=== PATIENT | male | born 1965 | race Two or more races ===

== ENCOUNTER 2016-03-18 17:52 | Emergency (ER) | payer OTHER ==
[~2016-03-18] VITALS: Ht 170.2 cm; Wt 88.0 kg
[~2016-03-18 17:52] MED LIST: NOR10T PO
[2016-03-18 18:55] LABS: Basophils # (auto) 0 uL; Basophils % (auto) 0.3 % (0.0-2.0); Eosinophils # (auto) 0.1 uL; Eosinophils % (auto) 1.7 % (0.0-7.0); Hematocrit 47.6 % (41.0-53.0); Hemoglobin 15.8 g/dL (13.5-17.5); Lymphocytes # (auto) 1.8 uL; Lymphocytes % (auto) 26.7 % (10.0-50.0); Mean Corpuscular Hemoglobin 29.5 pg (28.0-32.0); Mean Corpuscular Hgb Conc. 33.2 g/dL (32.0-36.0); Mean Corpuscular Volume 88.9 fL (80.0-100.0); Mean Platelet Volume 7.2 fL (7.4-10.4); Monocytes # (auto) 0.4 uL; Monocytes % (auto) 5.2 % (0.0-12.0); Neutrophils # (auto) 4.5 uL; Neutrophils % (auto) 66.1 % (37.0-80.0); Platelet Count (auto) 380 10^3/uL (140-450); Red Cell Distribution Width 13.2 % (11.6-16.0); White Blood Cell 6.8 10^3/uL (4.4-10.8)
[2016-03-18 19:13] LABS: Albumin 4.6 g/dL (3.4-5.0); BUN/Creatinine Ratio 11.9; Bilirubin, Total 0.3 mg/dL (0.2-1.0); Potassium 3.9 mmol/L (3.5-5.1); Total Protein 7.9 g/dL (6.4-8.2)
[2016-03-19 04:00] VITALS: BP 108/77
[2016-03-19] MEDS ORDERED: SODIUM CHLORIDE 0.9% 1,000 ML IV ONE (04:15)
[2016-03-19] MEDS ORDERED: ONDANSETRON HCL 4 MG/2 ML VIAL IV ONE (04:15)
== END 2016-03-19 05:32 | disposition home or self-care (01) ==
LOC: ER 18:05
DX: R07.89 Other chest pain (principal); K29.70 Gastritis, unspecified, without bleeding; F41.9 Anxiety disorder, unspecified; I10 Essential (primary) hypertension; R42 Dizziness and giddiness
CPT/HCPCS: 36415; 74176; 80053; 83690; 84484; 85025; 85049; 93005; 96361; 96374; 99285; J2405; J7030

== ENCOUNTER 2016-10-26 08:45 | Emergency (ER) | payer OTHER ==
[~2016-10-26] VITALS: Ht 170.2 cm; Wt 85.7 kg
[2016-10-26 09:31] LABS: Basophils # (auto) 0 uL; Basophils % (auto) 0.2 % (0.0-2.0); CONDITION Y; Eosinophils # (auto) 0.1 uL; Hematocrit 47.5 % (41.0-53.0); Hemoglobin 16.5 g/dL (13.5-17.5); Lymphocytes # (auto) 1.5 uL; Lymphocytes % (auto) 25.8 % (10.0-50.0); Mean Corpuscular Hemoglobin 30.9 pg (28.0-32.0); Mean Corpuscular Hgb Conc. 34.8 g/dL (32.0-36.0); Mean Corpuscular Volume 88.8 fL (80.0-100.0); Mean Platelet Volume 6.9 fL (7.4-10.4); Monocytes # (auto) 0.3 uL; Monocytes % (auto) 5.6 % (0.0-12.0); Neutrophils # (auto) 3.8 uL; Neutrophils % (auto) 66.4 % (37.0-80.0); Platelet Count (auto) 330 10^3/uL (140-450); Red Cell Distribution Width 13.5 % (11.6-16.0); White Blood Cell 5.7 10^3/uL (4.4-10.8)
[2016-10-26 10:09] LABS: Albumin 4.1 g/dL (3.4-5.0); Alkaline Phosphatase 108 U/L (45-117); Anion Gap 8 (5-15); Aspartate Aminotransferase 16 U/L (15-37); BUN/Creatinine Ratio 9.8; Bilirubin, Total 0.4 mg/dL (0.2-1.0); Blood Urea Nitrogen 8 mg/dL (7-18); Calcium 8.9 mg/dL (8.5-10.1); Carbon Dioxide 26 mmol/L (21-32); Chloride 106 mmol/L (98-107); GFR African American 126 mL/min; GFR Non-African American 104 mL/min; Glucose 105 mg/dL (74-106); Magnesium 2.4 mg/dL (1.6-2.6); Potassium 3.9 mmol/L (3.5-5.1); Sodium 140 mmol/L (136-145); Total Protein 7.9 g/dL (6.4-8.2)
[2016-10-26] MEDS ORDERED: SODIUM CHLORIDE 0.9% 1,000 ML IV ONE (10:15)
[2016-10-26 10:28] LABS: B-Type Natriuretic Peptide 12.07 pg/mL (0-100)
[2016-10-26] MEDS ORDERED: ASPirin 81 mg TAB PO ONE (10:30)
[2016-10-26] MEDS ORDERED: NITROGLYCERIN 0.4 MG SL TAB SL ONE (10:30)
[2016-10-26] MEDS ORDERED: LORazepam 2MG/ML-1ML VIAL IV ONE (10:30)
[2016-10-26 10:32] LABS: Temperature: 23.5 C (20.0-25.0)
[2016-10-26 13:44] VITALS: BP 122/77
== END 2016-10-26 13:48 | disposition short-term general hospital (02) ==
LOC: ER 08:45
DX: R07.89 Other chest pain (principal); F41.9 Anxiety disorder, unspecified; R11.2 Nausea with vomiting, unspecified; R61 Generalized hyperhidrosis; G89.29 Other chronic pain; M54.9 Dorsalgia, unspecified; E78.5 Hyperlipidemia, unspecified
CPT/HCPCS: 36415; 71010; 80053; 83735; 83880; 84443; 84484; 85025; 93005; 96374; 99285; J2060; J7030

== ENCOUNTER 2017-05-08 14:01 | Observation (INO) | payer OTHER, MEDICAID ==
[~2017-05-08] VITALS: Ht 177.8 cm; Wt 86.2 kg
[2017-05-08 14:45] LABS: Basophils # (auto) 0 uL; Basophils % (auto) 0.4 % (0.0-2.0); Eosinophils # (auto) 0.1 uL; Hematocrit 44.7 % (41.0-53.0); Hemoglobin 15.2 g/dL (13.5-17.5); Lymphocytes # (auto) 1.3 uL; Lymphocytes % (auto) 21.8 % (10.0-50.0); Mean Corpuscular Hemoglobin 30.3 pg (28.0-32.0); Mean Corpuscular Hgb Conc. 34.1 g/dL (32.0-36.0); Monocytes # (auto) 0.4 uL; Monocytes % (auto) 6.6 % (0.0-12.0); Neutrophils % (auto) 70.2 % (37.0-80.0); Platelet Count (auto) 306 10^3/uL (140-450); Red Blood Cells 5.03 10^6/uL (4.5-5.90); White Blood Cell 5.7 10^3/uL (4.4-10.8)
[2017-05-08] MEDS ORDERED: ONDANSETRON HCL 4 MG/2 ML VIAL IV ONE (15:00)
[2017-05-08] MEDS ORDERED: MORPHINE SULFATE 4 MG/ML SYR/VIAL IV ONE (15:00)
[2017-05-08 15:08] LABS: Alanine Aminotransferase 31 U/L (16-61); Albumin 3.9 g/dL (3.4-5.0); Alkaline Phosphatase 105 U/L (45-117); Anion Gap 9 (5-15); Aspartate Aminotransferase 21 U/L (15-37); BUN/Creatinine Ratio 12.5; Bilirubin, Total 0.7 mg/dL (0.2-1.0); Blood Urea Nitrogen 11 mg/dL (7-18); Calcium 8.3 mg/dL (8.5-10.1); Carbon Dioxide 23 mmol/L (21-32); Chloride 109 mmol/L (98-107); GFR African American 116 mL/min; GFR Non-African American 96 mL/min; Glucose 92 mg/dL (74-106); Potassium 3.6 mmol/L (3.5-5.1); Sodium 141 mmol/L (136-145); Total Protein 7.1 g/dL (6.4-8.2)
[2017-05-08 15:41] LABS: INR 0.98 (0.9-1.15); Partial Thromboplastin Time 28.3 sec (22.64-33.71); Prothrombin Time 10.7 sec (9.37-12.3)
[2017-05-08 21:11] VITALS: BP 120/80
== END 2017-05-08 21:27 | disposition short-term general hospital (02) | DRG 313 ==
LOC: ER 14:01 → EDBD 14:01 → OVERFLOW 14:57 → ER 21:27
PROVIDERS: ADMIT Family Medicine; ATTEND Family Medicine
DX: R07.89 Other chest pain (principal); E78.5 Hyperlipidemia, unspecified; F41.9 Anxiety disorder, unspecified; Z82.49 Family history of ischemic heart disease and other diseases of the circulatory system; Z83.3 Family history of diabetes mellitus; Z79.899 Other long term (current) drug therapy
CPT/HCPCS: 36415; 71045; 80053; 83735; 83880; 84443; 84484; 85025; 85379; 85610; 85730; 93005; 96374; 96375; 99285; G0378; J2270; J2405

== ENCOUNTER 2019-10-03 20:14 | Emergency (ER) | payer OTHER, MEDICAID ==
[~2019-10-03] VITALS: Ht 175.3 cm; Wt 95.3 kg
[2019-10-03] MEDS ORDERED: IOHEXOL 300 MG/ML 100ML BOTTLE IJ ONE (21:19)
[2019-10-03 21:24] LABS: Basophils # (auto) 0 10 ^3/uL (0-0.2); Basophils % (auto) 0.3 % (0.0-2.0); Eosinophils # (auto) 0.2 10 ^3/uL (0-0.8); Eosinophils % (auto) 3.7 % (0.0-7.0); Hematocrit 38.6 % (41.0-53.0); Hemoglobin 13.1 g/dL (13.5-17.5); Lymphocytes # (auto) 1.3 10 ^3/uL (0.4-5.4); Mean Corpuscular Hemoglobin 30.5 pg (28.0-32.0); Mean Corpuscular Hgb Conc. 33.9 g/dL (32.0-36.0); Mean Corpuscular Volume 89.8 fL (80.0-100.0); Monocytes # (auto) 0.5 10 ^3/uL (0-1.3); Monocytes % (auto) 8.7 % (0.0-12.0); Neutrophils # (auto) 3.6 10 ^3/uL (1.6-8.6); Neutrophils % (auto) 64.3 % (37.0-80.0); Platelet Count (auto) 275 10^3/uL (140-450); Red Cell Distribution Width 13.3 % (11.8-14.3); White Blood Cell 5.7 10^3/uL (4.4-10.8)
[2019-10-03 21:35] LABS: Albumin 3.6 g/dL (3.4-5.0); Anion Gap 7 (5-15); Blood Urea Nitrogen 16 mg/dL (7-18); Calcium 8.1 mg/dL (8.5-10.1); Carbon Dioxide 26 mmol/L (21-32); Chloride 109 mmol/L (98-107); Glucose 88 mg/dL (74-106); Magnesium 2.4 mg/dL (1.6-2.6); Potassium 3.8 mmol/L (3.5-5.1); Sodium 142 mmol/L (136-145)
[2019-10-03 21:41] LABS: Alanine Aminotransferase 30 U/L (16-61); Alkaline Phosphatase 99 U/L (45-117); Aspartate Aminotransferase 22 U/L (15-37); BUN/Creatinine Ratio 14.8; Bilirubin, Total 0.3 mg/dL (0.2-1.0); GFR African American 91 mL/min; GFR Non-African American 75 mL/min; Total Protein 6.7 g/dL (6.4-8.2)
[2019-10-03 21:48] LABS: INR 1.03 (0.9-1.15); Partial Thromboplastin Time 28.2 sec (23.0-31.2)
[2019-10-04] MEDS ORDERED: ONDANSETRON HCL 4 MG/2 ML VIAL IV ONE (00:30)
[2019-10-04] MEDS ORDERED: MORPHINE SULFATE 4 MG/ML SYR/VIAL IV ONE (00:30)
[2019-10-04 03:00] VITALS: BP 94/52
[2019-10-04] MEDS ORDERED: HYDROcodone-ACET 5/325MG TAB PO ONE (03:15)
== END 2019-10-04 03:34 | disposition home or self-care (01) ==
LOC: EDBD 20:14 → ER 20:18
DX: S00.83XA Contusion of other part of head, initial encounter (principal); M54.2 Cervicalgia; E78.5 Hyperlipidemia, unspecified; V49.9XXA Car occupant (driver) (passenger) injured in unspecified traffic accident, initial encounter; Y93.89 Activity, other specified; Y92.89 Other specified places as the place of occurrence of the external cause; Y99.8 Other external cause status
CPT/HCPCS: 36415; 70450; 71260; 72125; 74177; 80053; 83735; 83880; 84443; 84484; 85610; 85730; 93005; 96374; 96375; 99285; J2270; J2405; Q9967

== ENCOUNTER 2021-10-22 17:06 | Emergency (ER) | payer OTHER, MEDICAID ==
[~2021-10-22] VITALS: Ht 172.7 cm; Wt 100.0 kg
[2021-10-22 17:57] LABS: Basophils # (auto) 0 10 ^3/uL (0-0.2); Basophils % (auto) 0.2 % (0.0-2.0); Eosinophils # (auto) 0.1 10 ^3/uL (0-0.8); Eosinophils % (auto) 1.4 % (0.0-7.0); Hematocrit 40.4 % (41.0-53.0); Hemoglobin 13.6 g/dL (13.5-17.5); Lymphocytes % (auto) 18.1 % (10.0-50.0); Mean Corpuscular Hemoglobin 29.8 pg (28.0-32.0); Mean Corpuscular Hgb Conc. 33.8 g/dL (32.0-36.0); Mean Corpuscular Volume 88.3 fL (80.0-100.0); Monocytes # (auto) 0.5 10 ^3/uL (0-1.3); Monocytes % (auto) 9.3 % (0.0-12.0); Nucleated Red Blood Cells % 0.1 %; Red Blood Cells 4.57 10^6/uL (4.5-5.90); Red Cell Distribution Width 13.2 % (11.8-14.3); White Blood Cell 5.6 10^3/uL (4.4-10.8)
[2021-10-22 18:27] LABS: Albumin 3.9 g/dL (3.4-5.0); BUN/Creatinine Ratio 14.5; Calcium 8.7 mg/dL (8.5-10.1)
[2021-10-22 18:30] LABS: Bilirubin, Total 0.4 mg/dL (0.2-1.0); Total Protein 6.7 g/dL (6.4-8.2)
[2021-10-22] MEDS ORDERED: NITROGLYCERIN 0.4 MG SL TAB SL ONE (19:00)
[2021-10-23 02:15] VITALS: BP 129/90
== END 2021-10-23 02:30 | disposition short-term general hospital (02) ==
LOC: EDUNIT# 17:06 → EDBD 17:06 → ER 17:06
DX: R07.89 Other chest pain (principal); I10 Essential (primary) hypertension; E78.5 Hyperlipidemia, unspecified; Z20.822 Contact with and (suspected) exposure to COVID-19
CPT/HCPCS: 36415; 71045; 80053; 84484; 85025; 93005